=== PATIENT | male | born 1960 | race Caucasian/White ===

== ENCOUNTER 2017-03-06 21:54 | Observation (INO) | payer OTHER ==
[2017-03-06] MEDS ORDERED: MORPHINE SULFATE 8 MG/ML INJ ONE (22:01)
[2017-03-06] MEDS ORDERED: ONDANSETRON HCL 4 MG/2 ML VIAL ONE (22:01)
[2017-03-06] MEDS ORDERED: ceFAZolin 2 GM PREMIX 50 ML ONE (22:01)
[2017-03-06] MEDS ORDERED: DIPHTH/TETANUS/ACEL PERTUSSIS (BOOSTER) 0.5 ML VIAL/PFS IM ONE (22:01)
[2017-03-06] MEDS ORDERED: IOHEXOL 350 MG/ML 10 ML VIAL (for RAD DIAG) IV ONE (22:16)
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
[2017-03-06 22:23] LABS: I-STAT POTASSIUM 3.6 MMOL/L (3.5-4.9); I-STAT SODIUM 134 MMOL/L (138-146)
[2017-03-06 22:24] LABS: AUTOMATED NEUTROPHIL # 7.1 TH/MM3 (1.8-7.7); BASOPHIL # 0.1 TH/MM3 (0-0.2); BASOPHIL % 0.5 % (0.0-2.0); EOSINOPHIL # 0.2 TH/MM3 (0-0.4); EOSINOPHIL % 1.4 % (0.0-4.0); LYMPHOCYTE # 3.1 TH/MM3 (1.0-4.8); MEAN CELL VOLUME 87.4 FL (80.0-100.0); MEAN CORPUSCULAR HEMOGLOBIN 30.7 PG (27.0-34.0); MEAN CORPUSCULAR HGB CONC 35.2 % (32.0-36.0); MONO % 6.1 % (0.0-8.0); PLATELET COUNT 226 TH/MM3 (150-450); RED BLOOD COUNT 4.92 MIL/MM3 (4.50-5.90); RED CELL DISTRIBUTION WIDTH 12.8 % (11.6-17.2); WHITE BLOOD COUNT 11.1 TH/MM3 (4.0-11.0)
[2017-03-06 22:25] LABS: HEMO FLAGS AUTO DIFF
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
[2017-03-06] MEDS ORDERED: ONDANSETRON HCL 4 MG/2 ML VIAL IV PRN (22:30)
[2017-03-06] MEDS ORDERED: SODIUM CHLORIDE 0.9% FLUSH 10 ML FLUSH IV FLUSH PRN (22:30)
[2017-03-06] MEDS ORDERED: HYDROmorphone HCL PF 1 MG/ML VIAL IVP PRN (22:30)
[2017-03-06] MEDS ORDERED: ACETAMINOPHEN/HYDROcodone 325 MG/5 MG TAB PO PRN ×2 (22:30)
[2017-03-06] MEDS ORDERED: MAGNESIUM HYDROXIDE SUSP 30 ML CUP PO PRN (22:30)
[2017-03-06] MEDS ORDERED: ENALAPRILAT 1.25 MG/ML VIAL IV PRN (22:30)
[2017-03-06 22:37] LABS: APTT (PATIENT) 21.9 SEC (24.3-30.1); INTERNATIONAL NORMALIZED RATIO 0.9 RATIO
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
[2017-03-06 22:38] VITALS: BP 160/75; PULSE 120; RESP 13; O2SAT 100
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
[2017-03-06] MEDS: SODIUM CHLOR 0.9% 1000 ML INJ 1,000 ML IV SCH ×2 (22:45→23:02)
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
[2017-03-06] MEDS ORDERED: PANTOPRAZOLE SODIUM 40 MG VIAL IVP SCH (23:00)
[2017-03-06 23:03] VITALS: BP 182/84; PULSE 113; RESP 20; O2SAT 97
[2017-03-06 23:34] VITALS: BP 177/78; PULSE 113; RESP 16
[2017-03-06 23:38] LABS: PLATELET ESTIMATE SMEAR NORMAL (NORMAL); PLATELET MORPHOLOGY NORMAL (NORMAL); SCAN/DIFF AUTO DIFF CONFIRMED
[2017-03-06 23:50] VITALS: BP 177/78
[2017-03-07 00:10] VITALS: BP 142/77; PULSE 115; RESP 18; TEMP 98.1; O2SAT 96
[2017-03-07] MEDS ORDERED: ATOR1TAB18 PO (00:25)
[2017-03-07] MEDS ORDERED: LISI20TA PO (00:25)
[2017-03-07] MEDS ORDERED: GLIP10TA6 PO (00:25)
[2017-03-07] MEDS ORDERED: METF500T PO (00:25)
[2017-03-07 01:11] LABS: BLOOD, URINE NEG (NEG); GLUCOSE,URINE 1000 mg/dL (NEG); KETONE, URINE 10 mg/dL (NEG); NITRITE,URINE NEG (NEG); URINE COLOR LIGHT-YELLOW (YELLW/STRAW)
[2017-03-07 01:16] LABS: COMMENT (UR) CATH-CULT NOT IND; CULTURE IF INDICATED CATH CULTURE NOT IND
[2017-03-07 01:19] LABS: AMPHETAMINE, URINE NEG (NEG); BARBITURATES, URINE NEG (NEG); COCAINE, URINE NEG (NEG)
[2017-03-07 04:28] VITALS: BP 136/73; PULSE 102; RESP 18; TEMP 97.8; O2SAT 97
[2017-03-07 05:05] LABS: AUTOMATED NEUTROPHIL # 6.6 TH/MM3 (1.8-7.7); BASOPHIL % 0.2 % (0.0-2.0); EOSINOPHIL # 0.1 TH/MM3 (0-0.4); EOSINOPHIL % 0.5 % (0.0-4.0); HEMATOCRIT 39.2 % (39.0-51.0); HEMO FLAGS DIFF FINAL; LYMPH % 24.5 % (9.0-44.0); LYMPHOCYTE # 2.5 TH/MM3 (1.0-4.8); MEAN CELL VOLUME 87.1 FL (80.0-100.0); MEAN CORPUSCULAR HEMOGLOBIN 30.2 PG (27.0-34.0); MEAN CORPUSCULAR HGB CONC 34.7 % (32.0-36.0); MONO % 9.5 % (0.0-8.0); NEUT % 65.3 % (16.0-70.0); PLATELET COUNT 205 TH/MM3 (150-450); RED CELL DISTRIBUTION WIDTH 12.6 % (11.6-17.2); WHITE BLOOD COUNT 10.2 TH/MM3 (4.0-11.0)
[2017-03-07 05:20] LABS: ALT (GPT) 27 U/L (12-78); ANION GAP 10 MEQ/L (5-15); AST (GOT) 15 U/L (15-37); BICARBONATE 24.1 MEQ/L (21.0-32.0); BLOOD UREA NITROGEN 15 MG/DL (7-18); CHLORIDE 105 MEQ/L (98-107); GLOMERULAR FILTRATION RATE 70 ML/MIN (>89); POTASSIUM 3.5 MEQ/L (3.5-5.1); SODIUM (NA) 139 MEQ/L (136-145)
[2017-03-07 05:21] LABS: ALKALINE PHOSPHATASE 66 U/L (45-117); TOTAL BILIRUBIN ADULT 0.3 MG/DL (0.2-1.0)
[2017-03-07] MEDS: SODIUM CHLOR 0.9% 1000 ML INJ 1,000 ML IV SCH ×2 (06:45→09:52)
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
[2017-03-07 07:57] VITALS: BP 142/88; PULSE 92; RESP 22; TEMP 98.4; O2SAT 94
[2017-03-07] MEDS ORDERED: BACITRACIN TOP OINT 15 GM TUBE TOP SCH (09:00)
[2017-03-07] MEDS ORDERED: DOCUSATE SODIUM 100 MG CAP PO SCH (09:00)
[2017-03-07 11:31] VITALS: BP 156/75; PULSE 91; RESP 20; TEMP 98; O2SAT 96
[2017-03-07] MEDS ORDERED: NON-FORMULARY DRUG (Lisinopril-Hctz 1 TAB) PO SCH (12:30)
[2017-03-07] MEDS ORDERED: HYDROCHLOROTHIAZIDE 25 MG TAB PO SCH (13:00)
[2017-03-07] MEDS ORDERED: LISINOPRIL 20 MG TAB PO SCH (13:00)
[2017-03-07] MEDS ORDERED: PILL SPLITTER OTHER PRN (13:00)
[2017-03-07 13:20] VITALS: BP_SYST 129; BP_SYST 139; BP_DIAS 76; BP_DIAS 77
[2017-03-07] MEDS ORDERED: WALKER WHEELS/F1 MIS (15:31)
[2017-03-07 15:39] VITALS: BP 166/85; PULSE 90; RESP 20; TEMP 98; O2SAT 94
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
[2017-03-07] MEDS ORDERED: ATORVASTATIN 80 MG TAB PO SCH (21:00)
== END 2017-03-07 17:05 | disposition home or self-care (01) ==
LOC: NEPI 21:54 → NEDA 22:24 → EDBD 22:24 → NEPGCP 23:57
PROVIDERS: ADMIT Surgery; ATTEND Surgery
DX: M25.512 Pain in left shoulder (principal); M79.642 Pain in left hand; M79.641 Pain in right hand; M25.571 Pain in right ankle and joints of right foot; G89.29 Other chronic pain; M25.511 Pain in right shoulder; I10 Essential (primary) hypertension; E78.5 Hyperlipidemia, unspecified; E11.9 Type 2 diabetes mellitus without complications; V43.52XA Car driver injured in collision with other type car in traffic accident, initial encounter; S61.432A Puncture wound without foreign body of left hand, initial encounter; K44.9 Diaphragmatic hernia without obstruction or gangrene; J98.11 Atelectasis; M50.30 Other cervical disc degeneration, unspecified cervical region; S42.032A Displaced fracture of lateral end of left clavicle, initial encounter for closed fracture; M25.532 Pain in left wrist; E78.00 Pure hypercholesterolemia, unspecified; S60.222A Contusion of left hand, initial encounter; Z23 Encounter for immunization
CPT/HCPCS: 70450; 70486; 71010; 71260; 72125; 72170; 73020; 73120; 73590; 73600; 74177; 80053; 80307; 81001; 82435; 82565; 82947; 82948; 84132; 84295; 84520; 85025; 85384; 85610; 85730; 86850; 86900; 86901; 90471; 90715; 96374; 96375; 97162; 99285; 99291; C9113; G0378; J0690; J2270; J2405; J7030; Q9967; G0390